=== PATIENT | male | born 1955 | race Asian ===

== ENCOUNTER 2017-02-26 18:03 | Emergency (ER) | payer OTHER ==
[2017-02-26] MEDS ORDERED: TDAP ADULT 0.5 ML INJ (BOOSTRIX) IM ONE (19:29)
--- NOTE | 2017-02-26 20:16 | EDPHY ---
H & P Stated Complaint: Lac L ring finger HPI/ROS: Chief complaint: Left ring finger laceration History of present illness: This is a 62-year-old male who presents to the emergency department for left ring finger laceration. This occurred just prior to arrival. He was removing old tile from a wall when a piece of tile and grout that cut his finger. Mild pain. There has been bleeding but that has been controlled with a dressing. He is still moving the finger well. No report of abnormal coolness or paresthesias in the finger. No other injuries reported. He is not sure when he received his last tetanus shot. - Personal History Current Tetanus Diphtheria and Acellular Pertussis (TDAP): No - Medical/Surgical History Other PMH: HTN. cholesterol - Social History Smoking Status: Former smoker - Physical Exam Exam: General: Alert, nontoxic Skin Skin: There is a 1 cm laceration over the mid aspect of the flexor surface of the left ring finger. Exploration does not reveal deep structure injury or foreign body contamination. Musculoskeletal: Patient is flexing and extending his finger in the DIP, PIP and MCP joint well. Vascular: Capillary refill brisk in the left ring finger. Neurologic: Sensation intact in the finger using light touch and two-point discrimination Constitutional: Initial Vital Signs Temperature (C) 36.6 C 02/26/17 18:06 Heart Rate 67 02/26/17 18:06 Respiratory Rate 16 02/26/17 18:06 Blood Pressure 143/86 H 02/26/17 18:06 O2 Sat (%) 96 02/26/17 18:06 O2 Delivery Mode Room Air Allergies/Adverse Reactions: metronidazole [From Flagyl] Allergy (Mild, Verified 02/26/17 18:04) itch Metronidazole HCl [From Flagyl] Allergy (Unknown, Verified 03/13/09 12:47) Home Medications: Medication Instructions Recorded Adacane 03/13/09 Tamsulosin HCl [Flomax] 0.4 mg PO .DAILY #3 cap 03/13/09 Atorvastatin Calcium [Lipitor 40 40 mg PO 02/26/17 mg (*)] Medical Decision Making Procedures: Procedure: Laceration repair. Verbal consent was obtained from the patient. The 1 cm laceration on the flexor surface of the left ring finger was anesthetized in the usual fashion. The wound was irrigated, draped and explored to its base with a gloved finger. There were no deep structures involved. No tendon injury was identified. The wound was repaired with 5 0 Prolene, 4 simple interrupted sutures. The wound repair was simple. The procedure was performed by myself. ED Course/Re-evaluation: Patient is seen under the supervision of my secondary supervising physician Dr. Lazarus Tobar. Patient presents to the emergency department for left ring finger laceration. He has good musculoskeletal control of the finger. It is neurovascularly intact. Wound is cleaned, explored without evidence of foreign body contamination or deep structure injury, repaired and dressed. His tetanus is updated. He is discharged home. Asked to follow up with a primary care doctor or hand doctor for recheck. Return precautions are given. Patient voiced understanding and agreement with plan. - Data Points Medications Given: Discontinued Medications Diphtheria/Tetanus/Acell Pertussis (Boostrix) 0.5 ml IM .ONCE ONE Stop: 02/26/17 19:30 Last Admin: 02/26/17 19:37 Dose: 0.5 ml Departure - Departure Disposition: Home, Routine, Self-Care Clinical Impression: Finger laceration Qualifiers: Encounter type: initial encounter Finger: ring finger Damage to nail status: without damage Foreign body presence: without foreign body Laterality: left Qualified Code(s): S61.215A - Laceration without foreign body of left ring finger without damage to nail, initial encounter Condition: Good Instructions: Finger Laceration (ED) Additional Instructions: Follow-up with your primary care doctor or a hand doctor for recheck next week Stitches to be removed in 7 days If symptoms worsen or new symptoms develop return to the emergency room for recheck Referrals: Miguel Angel Anderson MD [Primary Care Provider] - As per Instructions Vinayak Sena MD [Medical Doctor] - As per Instructions
[2017-02-26 20:31] VITALS: BP 134/88; PULSE 62; RESP 13; TEMP 98.8; O2SAT 92
== END 2017-02-26 20:31 | disposition home or self-care (01) ==
PROC: 0HQGXZZ Repair Left Hand Skin, External Approach (ICD-10-PCS; principal; 2017-02-26)
DX: S61.215A Laceration without foreign body of left ring finger without damage to nail, initial encounter (principal); I10 Essential (primary) hypertension; Z87.891 Personal history of nicotine dependence; Z23 Encounter for immunization; W45.8XXA Other foreign body or object entering through skin, initial encounter